=== PATIENT | female | born 1960 | race African-American/Black ===

== ENCOUNTER 2019-02-05 13:27 | Emergency (ER) | payer SELFPAY ==
[~2019-02-05] VITALS: Ht 167.6 cm; Wt 135.0 kg
[~2019-02-05 13:27] MED LIST: ACYCLOVIR800 MG PO; ADVAIR DISK1 IN; ADVAIR DISK2 IN; ALL DAY10 MG PO; ALLOPURINOL100 MG OR; AMLODIPINE5 MG PO; AMOXICILLIN/CL875 MG OR; AMOXICILLIN/CL875 MG PO; AMOXICILLIN500 MG OR; AMOXICILLIN875 MG PO; ARIPIPRAZOLE5 MG PO; AUGMENTIN OR; AUGMENTIN875 MG PO; AUGMENTIN875TAB OR; AUGMENTIN875TAB PO; BACLOFEN10 MG PO; BACTRIM DS1 TAB PO; BENZONATATE200 MG PO; CAPOTEN50 MG PO; CAPTOPRIL50 MG OR; CIPRO500 MG PO; CIPROFLOXACN500 MG PO; CLEOCIN VAG2 % VA; CYCLOBENZAPRINE10 MG PO; DIFLUCAN150 MG OR; DIFLUCAN150 MG PO; E.E.S. 400400 MG OR; FIORICET PO; FLEXERIL OR; FLEXERIL PO; FLEXERIL10 MG PO; FLEXERIL5 M1 PO; FLONASE NASAL50 MCG; HYDROCHLOROT25 MG OR; HYDROCHLOROT25 MG PO; HYDROCORTISO2.51 EX; LISINOPRIL10 MG PO; LOPRESSOR12.5 MG PO; LOPRESSOR50 M1 PO; MEDDOSEPAK OR; MELOXICAM15 MG OR; MELOXICAM15 MG PO; METOPROL TAR100 MG PO; NABUMETONE750 MG OR; NAPROSYN500 MG PO; NAPROXEN SOD550 MG OR; NEURONTIN300 MG PO; NORVASC2.5 MG PO; OMEPRAZOLE40 MG PO; POLYTRIM OS; PRAZOSIN HCL2 M1 PO; PREVACID30 M2 OR; PRILOSEC40 MG PO; PROAIR HFA IN; SINGULAIR OR; TERAZOL 30.8 % VA; THEO-24400 MG OR; TRAMADOL HCL50 MG PO; TYLOPHEN500 MG PO; ULTRAM50 MG OR; VITAMIN D2000 UNI1 OR; VITAMIN D2000 UNIT PO; VITAMIN D35000 UNIT PO; ZEBUTAL 50-325-1 CAP PO; ZOFRAN ODT8 MG OR; [UNRECOGNIZED DRUG - CODE] OR
[2019-02-05] MEDS ORDERED: METFORMIN500 M2 PO (13:50)
[2019-02-05] MEDS ORDERED: LISINOP/HCTZ1 TA1 PO (13:51)
[2019-02-05] MEDS ORDERED: STERAPRED DS10 MG PO (14:33)
[2019-02-05 14:45] VITALS: BP 139/79
== END 2019-02-05 14:45 | disposition home or self-care (01) | DRG 153 ==
LOC: ED 13:27
DX: J02.9 Acute pharyngitis, unspecified (principal); I10 Essential (primary) hypertension; J45.909 Unspecified asthma, uncomplicated; E11.9 Type 2 diabetes mellitus without complications; Z79.84 Long term (current) use of oral hypoglycemic drugs

== ENCOUNTER 2020-02-22 20:30 | Observation (INO) | payer SELFPAY ==
[~2020-02-22] VITALS: Ht 167.6 cm; Wt 122.0 kg
[~2020-02-22 20:30] MED LIST changes: +LISINOP/HCTZ1 TA1 PO; +METFORMIN500 M2 PO; +STERAPRED DS10 MG PO
--- NOTE | 2020-02-22 20:32 | NUR ---
BY EMS TO ROOM
--- NOTE | 2020-02-22 20:33 | NUR ---
D/C'D O2 PER MD.
[2020-02-22 20:52] LABS: HEMATOCRIT 39.2 % (37.0-47.0); HEMOGLOBIN 12.5 g/dl (12.0-16.0); IMMATURE GRANULOCYTES 0.3 % (0.0-5.0); MEAN CELL VOLUME 86.5 fL CALC (80.0-100.0); MEAN CORPUSCULAR HGB 27.6 pG CALC (26.0-32.0); MEAN CORPUSCULAR HGB CONC 31.9 g/dL CAL (32.0-36.0); NEUT# 3.86 thou/uL (2.00-7.15); RED BLOOD COUNT 4.53 mill/uL (4.20-5.60); RED CELL DISTRI WIDTH 13.7 % (11.5-15.5)
[2020-02-22 21:11] LABS: ALBUMIN 4.5 g/dL (3.2-5.0); ALKALINE PHOSPHATASE 117 u/l (38-126); ANION GAP 11 (6-22 (CALC)); BILIRUBIN, TOTAL 0.4 mg/dL (0.0-1.4); BUN 10 mg/dL (7-17); BUN/CREATININE RATIO 12 (12-20 (CALC)); CARBON DIOXIDE 26 mmol/l (22-30); CHLORIDE 104 mmol/l (95-108); CREATININE 0.8 mg/dL (0.5-1.0); GFR > 60 ML/MIN (>=60 (CALC)); GFR FOR AFR.AMER. > 60 ML/MIN (>=60 (CALC)); POTASSIUM 3.9 mmol/l (3.5-5.1); SGOT/AST 29 u/l (14-36); SODIUM 137 mmol/l (137-146); TOTAL PROTEIN 7.5 g/dL (6.3-8.2)
[2020-02-22 21:23] LABS: MYOGLOBIN 64 ng/mL (0 - 62)
[2020-02-22] MEDS ORDERED: SYNTHROID25 MCG PO (22:03)
--- NOTE | 2020-02-22 22:15 | NUR ---
TO ICU ROOM 4 VIA W/C. ALERT. TALKATIVE, IS MS OVERMATT. DENIES CHEST PAIN AT THIS TIME. REPORTS HAD STERNAL BURNING AFTER EATING TONIGHT WHICH WAS GONE BEFORE ARRIVING AT HOSPITAL. NO SOB. B/P REMAIN ELEVATED.
--- NOTE | 2020-02-22 22:15 | NUR ---
Admission Note Report Given to: ZAID Transported by: X Wheelchair Stretcher Transported with: X Nurse Transporter X Patent IV O2 X Aircraft Magneto Mechanic Location: X ICU [facility]
[2020-02-22 23:09] LABS: URINE BILIRUBIN - DIPSTICK NEGATIVE (NEGATIVE); URINE BLOOD DIPSTICK TRACE-INTACT (NEGATIVE); URINE COLOR YELLOW; URINE GLUCOSE - DIPSTICK NEGATIVE (NEGATIVE); URINE KETONE NEGATIVE (NEGATIVE); URINE LEUK ESTERASE NEGATIVE (NEGATIVE); URINE NITRITE - DIPSTICK NEGATIVE (Negative); URINE PH 6.5 (4.5-8.0); URINE PROTEIN - DIPSTICK NEGATIVE (NEG-TRACE); URINE SPECIFIC GRAVITY <=1.005; URINE UROBILINOGEN - DIPSTICK 0.2 E.U./dL (0.2)
[2020-02-22 23:48] VITALS: BP 160/70
--- NOTE | 2020-02-23 | NUR ---
YBEDRESTING. UP TO BSC WITH ASSIST. STATES SHE TAKES METFORMING BID BUT SELDOM CHECK BLOOD SUGAR
--- NOTE | 2020-02-23 02:00 | NUR ---
UP TO BSC WITH STANDBY ASSIST. VOIDS LARGE AMOUNT AND RETURNS TO BED. NO DISTRESS NOTED
[2020-02-23 02:30] VITALS: BP 121/64
--- NOTE | 2020-02-23 03:07 | NUR ---
BEDRESTING. RESP EVEN AND NONLABORED. DENIES CHEST PAIN OR SOB. PHARMACY CONSULT ADDED PT UNABLE TO RECALL DOSE OF LEVOTHYROXIN. NEED PHARMACY TO VERIFY MEDICATIONS
--- NOTE | 2020-02-23 04:40 | NUR ---
TO BSC. VOIDED 300ML STRAW URINE. DENIES PAIN OR SOB. NO DISTRESS NOTED
[2020-02-23 05:30] VITALS: BP 151/66
--- NOTE | 2020-02-23 06:00 | NUR ---
BEDRESTING. LIGHTS AND TV OFF. RESP EVEN AND NONLABORED. NO DISTRESS NOTED. L3RD TROPONIN DRAWN AND TO LAB. AWAITING AM LAB RESULTS
--- NOTE | 2020-02-23 07:13 | NUR ---
REPORT GIVEN TO JULES LEIVA
--- NOTE | 2020-02-23 07:27 | NUR ---
pt awake in bed; no apparent distress noted; assessment completed at this time; pt alert and oriented; admits to intermittent midsternal chest pain lasting very briefly; denies pain at current; no n/v/diaphoresis noted; resp even and unlabored; lungs clear; skin color wnl; ra; hr reg; strong pulses; no edema noted; sr on monitor; abd soft with bs present; no bm noted per software writer; pt voiding clear yellow urine without complication; bsc; #20 flushed and patent to rac; no redness or edema noted at site; plan of care/ am meds explained; call light within reach; will continue to monitor
--- NOTE | 2020-02-23 07:35 | NUR ---
Dr Brito present at bedside to assess pt and discuss plan of care
[2020-02-23] MEDS ORDERED: ASPIRIN ADULT L81 M2 PO (07:45)
[2020-02-23 07:56] VITALS: BP 126/58
--- NOTE | 2020-02-23 08:00 | NUR ---
awake in bed; no apparent distress noted; sr on monitor; call light within reach; will continue to monitor
[2020-02-23 08:01] LABS: CHOLESTEROL HDL RATIO 3.7 (<4.4 (CALC))
[2020-02-23] MEDS ORDERED: LIPITOR10 M1 PO (09:14)
[2020-02-23 10:00] VITALS: BP 155/72
--- NOTE | 2020-02-23 10:21 | NUR ---
awake in bed conversing on cell phone; no apparent distress noted; pt offers no complaints; iv intact; sr on monitor; call light within reach; will continue to monitor
--- NOTE | 2020-02-23 12:14 | NUR ---
awake in bed eating lunch; no apparent distress noted; iv intact; sr on monitor; pt aware of pending discharge; will continue to monitor
[2020-02-23 12:35] VITALS: BP 155/72
--- NOTE | 2020-02-23 12:35 | NUR ---
discharge instructions reviewed; pt states understanding; iv discontinued; pt denies pain/ chest pain; will continue to monitor
--- NOTE | 2020-02-23 12:55 | NUR ---
Discharge instructions given. Patient verbalizes understanding of same. Discharged in stable condition via Wheelchair to Home with family. All belongings sent with pt.
== END 2020-02-23 12:55 | disposition home or self-care (01) | DRG 313 ==
LOC: ED 20:30 → ED-I 21:21 → ED 21:21 → ED-I 21:27 → ED 21:28 → ED-I 21:29 → ED 21:29 → ICU 21:59
PROVIDERS: Emergency Medicine; Internal Medicine; ADMIT Internal Medicine; ATTEND Internal Medicine
DX: R07.9 Chest pain, unspecified (principal); I16.0 Hypertensive urgency; I10 Essential (primary) hypertension; E11.9 Type 2 diabetes mellitus without complications; J45.909 Unspecified asthma, uncomplicated; T46.4X6A Underdosing of angiotensin-converting-enzyme inhibitors, initial encounter; Z91.128 Patient's intentional underdosing of medication regimen for other reason; Z79.84 Long term (current) use of oral hypoglycemic drugs; Z20.828 Contact with and (suspected) exposure to other viral communicable diseases

== ENCOUNTER 2021-01-23 19:54 | Emergency (ER) | payer SELFPAY ==
[~2021-01-23] VITALS: Ht 172.7 cm; Wt 123.0 kg
[~2021-01-23 19:54] MED LIST changes: +ASPIRIN ADULT L81 M2 PO; +LIPITOR10 M1 PO; +SYNTHROID25 MCG PO
[2021-01-24 02:45] VITALS: BP 170/63
== END 2021-01-23 23:45 | disposition short-term general hospital (02) | DRG 316 ==
LOC: ED 19:54
DX: R09.89 Other specified symptoms and signs involving the circulatory and respiratory systems (principal); E11.9 Type 2 diabetes mellitus without complications; I10 Essential (primary) hypertension; E04.9 Nontoxic goiter, unspecified; Z79.84 Long term (current) use of oral hypoglycemic drugs

== ENCOUNTER 2022-09-14 11:51 | Emergency (ER) | payer OTHER ==
[~2022-09-14] VITALS: Ht 172.7 cm; Wt 120.4 kg
[2022-09-14 13:48] VITALS: BP 157/78
[2022-09-14 14:01] VITALS: BP 134/83
[2022-09-14 14:34] VITALS: BP 154/72
[2022-09-14 14:36] LABS: BASO% 0.2 % (0-3); EOS% 2.7 % (0-8); HEMATOCRIT 37.2 % (37.0-47.0); IMMATURE GRANULOCYTES 0.2 % (0.0-5.0); LYMPH% 41.3 % (15-41); MEAN CELL VOLUME 87.7 fL CALC (80.0-100.0); MEAN CORPUSCULAR HGB 28.3 pG CALC (26.0-32.0); MEAN CORPUSCULAR HGB CONC 32.3 g/dL CAL (32.0-36.0); MONO% 7.2 % (2-13); NEUT# 4.74 thou/uL (2.00-7.15); NEUT% 48.4 % (42-76); RED BLOOD COUNT 4.24 mill/uL (4.20-5.60); RED CELL DISTRI WIDTH 13.7 % (11.5-15.5)
[2022-09-14] MEDS ORDERED: JANUVIA100 MG PO (14:37)
[2022-09-14] MEDS ORDERED: LISINOPRIL40 MG PO (14:38)
[2022-09-14] MEDS ORDERED: HYDROCHLOROT12.5 M1 PO (14:38)
[2022-09-14] MEDS ORDERED: GABAPENTIN300 M2 PO (14:39)
[2022-09-14] MEDS ORDERED: CEPHALEXIN500 MG PO (14:40)
[2022-09-14] MEDS ORDERED: NAPROXEN500 MG PO (14:40)
[2022-09-14 15:01] VITALS: BP 144/71
[2022-09-14 15:05] LABS: ALBUMIN 4.2 g/dL (3.2-5.0); ALKALINE PHOSPHATASE 102 u/l (38-126); ANION GAP 9 (6-22 (CALC)); BILIRUBIN, TOTAL 0.4 mg/dL (0.02-1.3); BUN 10 mg/dL (8-23); BUN/CREATININE RATIO 13 (12-20 (CALC)); CARBON DIOXIDE 28 mmol/l (22-30); CHLORIDE 105 mmol/l (95-108); CREATININE 0.8 mg/dL (0.5-1.0); GFR FOR AFR.AMER. > 60 ML/MIN (>=60 (CALC)); GFR OTHER RACES > 60 ML/MIN (>=60 (CALC)); POTASSIUM 3.8 mmol/l (3.5-5.1); SGOT/AST 28 u/l (9-36); SODIUM 138 mmol/l (137-146); TOTAL PROTEIN 7.6 g/dL (6.3-8.2)
[2022-09-14 17:37] LABS: TSH, 3RD GENERATION 1.08 uIU/mL (0.47 - 4.68)
[2022-09-14 18:01] VITALS: BP 144/71
== END 2022-09-14 18:13 | disposition home or self-care (01) ==
LOC: ED 11:51
PROVIDERS: Internal Medicine
DX: K14.6 Glossodynia (principal); E04.1 Nontoxic single thyroid nodule; R94.6 Abnormal results of thyroid function studies; I10 Essential (primary) hypertension; E11.9 Type 2 diabetes mellitus without complications
CPT/HCPCS: J1100; Q9967

== ENCOUNTER 2023-04-02 18:02 | Emergency (ER) | payer OTHER ==
[~2023-04-02] VITALS: Ht 172.7 cm; Wt 108.8 kg
[2023-04-02] VITALS (10 sets, daily range): BP systolic 97–144; BP diastolic 51–81
[~2023-04-02 18:02] MED LIST changes: +CEPHALEXIN500 MG PO; +GABAPENTIN300 M2 PO; +HYDROCHLOROT12.5 M1 PO; +JANUVIA100 MG PO; +LISINOPRIL40 MG PO; +NAPROXEN500 MG PO
[2023-04-02] MEDS ORDERED: PEPCID20 MG PO (18:20)
[2023-04-02 19:03] LABS: BASO% 0.2 % (0-3); EOS% 3.5 % (0-8); HEMATOCRIT 38.2 % (37.0-47.0); HEMOGLOBIN 12.2 g/dl (12.0-16.0); IMMATURE GRANULOCYTES 0.2 % (0.0-5.0); LYMPH% 49.5 % (15-41); MEAN CELL VOLUME 88.4 fL CALC (80.0-100.0); MEAN CORPUSCULAR HGB 28.2 pG CALC (26.0-32.0); MEAN CORPUSCULAR HGB CONC 31.9 g/dL CAL (32.0-36.0); MONO% 7.2 % (2-13); NEUT# 4.29 thou/uL (2.00-7.15); NEUT% 39.4 % (42-76); RED BLOOD COUNT 4.32 mill/uL (4.20-5.60)
[2023-04-02 19:25] LABS: ALBUMIN 4.3 g/dL (3.2-5.0); CREATININE 1.2 mg/dL (0.5-1.0); POTASSIUM 3.9 mmol/l (3.5-5.1); TOTAL PROTEIN 8.1 g/dL (6.3-8.2)
[2023-04-02 19:31] LABS: BILIRUBIN, TOTAL 0.6 mg/dL (0.02-1.3)
[2023-04-02 20:51] LABS: URINE BILIRUBIN - DIPSTICK Negative (NEGATIVE); URINE BLOOD DIPSTICK Negative (NEGATIVE); URINE COLOR Yellow; URINE GLUCOSE - DIPSTICK Negative (NEGATIVE); URINE KETONE Negative (NEGATIVE); URINE LEUK ESTERASE Negative (NEGATIVE); URINE NITRITE - DIPSTICK Negative (Negative); URINE PH 5.5 (4.5-8.0); URINE PROTEIN - DIPSTICK Negative (NEG-TRACE); URINE SPECIFIC GRAVITY <=1.005; URINE UROBILINOGEN - DIPSTICK 0.2 E.U./dL (0.2)
[2023-04-02] MEDS ORDERED: ULTRAM50 MG PO (22:34)
[2023-04-02] MEDS ORDERED: CYCLOBENZAPRINE10 MG PO (22:34)
== END 2023-04-02 22:53 | disposition home or self-care (01) ==
LOC: ED 18:02
PROVIDERS: Family Medicine
DX: M79.18 Myalgia, other site (principal); I10 Essential (primary) hypertension; E11.9 Type 2 diabetes mellitus without complications; Z79.84 Long term (current) use of oral hypoglycemic drugs; Z20.822 Contact with and (suspected) exposure to COVID-19
CPT/HCPCS: Q9967